=== PATIENT | male | born 1965 | race Caucasian/White ===

== ENCOUNTER 2019-02-09 07:25 | Emergency (ER) | payer BC ==
[2019-02-09 07:42] VITALS: BP 124/86
--- NOTE | 2019-02-09 08:10 | ED ---
Throat Pain/Nasal Congestion - HPI Summary HPI Summary: 53 yr old male with the complaint of pain followed by rash to the face and the scalp and ear. The patient states that 4 days ago he developed some pain, and pressure feeling in the right ear, the right side of the scalp and the right side of the face. The patient states that about a day and a half ago he then developed redness to the right side of the face with some small blisters forming. The rash is only in the V2, V3 distribution. No pain or rash to the right forehead, upper eyelid, eyeball or the nose. No facial weakness. - History of Current Complaint Chief Complaint: [place] Time Seen by Provider: 02/09/19 07:47 - Allergies/Home Medications Allergies/Adverse Reactions: Allergies Allergy/AdvReac Type Severity Reaction Status Date / Time No Known Allergies Allergy Verified 02/09/19 07:37 Home Medications: Home Medications diphenhydrAMINE HCl [Benadryl Allergy 25 MG CAP] 2 tab PO ONCE 02/09/19 [ History Confirmed 02/09/19] PMH/Surg Hx/FS Hx/Imm Hx - Surgical History Surgery Procedure, Year, and Place: L knee Infectious Disease History: No Infectious Disease History: Denies: Traveled Outside the [place] in Last 30 Days - Family History Known Family History: Positive: None - Social History Occupation: Employed Full-time Alcohol Use: Occasionally Substance Use Type: Reports: None Smoking Status (MU): Never Smoked Tobacco Review of Systems Constitutional: Negative Negative: Photophobia, Blurred Vision, Erythema Positive: Rash All Other Systems Reviewed And Are Negative: Yes Physical Exam Triage Information Reviewed: Yes Vital Signs On Initial Exam: Initial Vitals Temp Pulse Resp BP Pulse Ox 98.4 F 82 16 124/86 100 02/09/19 07:37 02/09/19 07:37 02/09/19 07:37 02/09/19 07:37 02/09/19 07:37 Vital Signs Reviewed: Yes Appearance: Positive: Well-Appearing, No Pain Distress Skin: Positive: Other - rash in the V2, V3 right side distribution, rash is red with vesicles. The forehead, upper eyelid, eyeball and the nose are spared. No rash in these areas. Head/Face: Positive: Normal Head/Face Inspection Eyes: Positive: EOMI, FAHAD, Conjunctiva Clear ENT: Positive: Normal ENT inspection, TM red - right anterior TM with red and some vesicles. Neck: Positive: Nontender Respiratory/Lung Sounds: Positive: Clear to Auscultation, Breath Sounds Present Cardiovascular: Positive: RRR. Negative: Murmur Abdomen Description: Positive: Nontender. Negative: Distended Musculoskeletal: Positive: Strength/ROM Intact Neurological: Positive: Sensory/Motor Intact, Alert, Oriented to Person Place, Time, CN Intact II-III, Normal Gait, Speech Normal Diagnostics - Vital Signs Vital Signs Temp Pulse Resp BP Pulse Ox 02/09/19 07:37 98.4 F 82 16 124/86 100 - Laboratory Lab Statement: Any lab studies that have been ordered have been reviewed, and results considered in the medical decision making process. EENT Course/Dx - Course Course Of Treatment: 53 yr old with shingles of the right V2,V3 branches of trigeminal nerve. I have reviewed the nerve charts with him and educated him on potential V1 involvement. I have prescribed Valtrex. i have referred him to Dr Murray the eye surgeon for follow up and the patient is aware of the possibility that this can spread to the V1 branch and cause a problem with his cornea. He will call the career development specialist this morning. - Diagnoses Provider Diagnoses: Shingles Discharge ED - Sign-Out/Discharge Documenting (check all that apply): Patient Departure All imaging exams completed and their final reports reviewed: No Studies - Discharge Plan Condition: Good Disposition: HOME Prescriptions: ValACYclovir (*) [Valtrex 1 GM(*)] 1 gm PO TID #21 tab Patient Education Materials: Shingles (ED) Referrals: Ann Parker MD [Primary Care Provider] - 2 Days Katina Murray MD [Medical Doctor] - 1 Day Additional Instructions: BE SURE TO GO TO THE ER and or call Dr MURRAY, the career development specialist if you develop pain, rash, burning on your forehead, upper eyelid, surface of the eye or the tip of the nose. DO not delay. Please call Dr Murray today to get an eye appointment for further evaluation and follow up. - Billing Disposition and Condition Condition: GOOD Disposition: Home
== END 2019-02-09 08:12 | disposition home or self-care (01) ==
LOC: UCCORT 07:25
DX: B02.9 Zoster without complications (principal)
CPT/HCPCS: 99202; G0463

== ENCOUNTER 2021-06-06 06:45 | Inpatient (IN) ==
[~2021-06-06 06:45] MED LIST: Buffered Lidocaine 1% SYRIN 1 ml INTRADERM ONE; DiMENhydriNATE IV 50 mg/ml 1 ml VIAL IV PUSH PRN; Lactated Ringers 1000 ml BAG 1,000 ML IV SCH; Naloxone 0.4 mg VIAL 0.4 mg/ml 1 ml VIAL IV PRN; Ondansetron 4 mg VIAL 2 MG/ML 2 ml VIAL IV PRN; diPHENhydraMINE IV 50 MG/ML 1 ml VIAL (BENADRYL) IV PRN
[2021-06-06] MEDS ORDERED: ceFAZolin 2 GM PREMIX 2 GM/50 ML BAG ONE (07:26)
[2021-06-06] MEDS ORDERED: Midazolam 2 mg/2 ml VIAL 1 mg/ml 2 ml VIAL (2 mg) ONE (07:36)
[2021-06-06] MEDS ORDERED: Lidocaine 2% PF 5 ML VIAL ONE ×2 (07:37→09:20)
[2021-06-06] MEDS ORDERED: Bupivacaine 0.5% SDV PF 30ML VIAL ONE (08:21)
[2021-06-06] MEDS ORDERED: Dexamethasone IV 4 MG/ML VIAL 1 ml VIAL ONE ×2 (08:22→09:20)
[2021-06-06] MEDS ORDERED: ROPIVACAINE 5 MG/ML 30 ML BTL (0.5%) ONE (09:01)
[2021-06-06] MEDS ORDERED: Propofol 10 MG/ML 20 ML BTL ONE (09:20)
[2021-06-06] MEDS ORDERED: fentaNYL 250 mcg/5 ml 50 MCG/ML 5 ml VIAL (250 MCG) ONE (09:20)
[2021-06-06] MEDS ORDERED: Ondansetron 4 mg VIAL 2 MG/ML 2 ml VIAL ONE (09:20)
[2021-06-06] MEDS ORDERED: Rocuronium 50 mg VIAL 10 mg/ml 5 ml VIAL (50 mg) ONE (09:20)
[2021-06-06] MEDS ORDERED: fentaNYL 100 mcg/2 ml 50 MCG/ML VIAL ONE ×3 (10:17→12:57)
[2021-06-06] MEDS ORDERED: HYDROmorphone 0.5 MG/0.5 ML SYRINGE ONE ×2 (10:18→10:31)
[2021-06-06] MEDS ORDERED: Lactulose 30 ml UDC PO PRN (12:18)
[2021-06-06] MEDS ORDERED: diPHENhydraMINE IV 50 MG/ML 1 ml VIAL (BENADRYL) IV PRN (12:18)
[2021-06-06] MEDS ORDERED: Ondansetron 4 mg VIAL 2 MG/ML 2 ml VIAL IV PRN (12:18)
[2021-06-06] MEDS ORDERED: Ondansetron ODT 4 mg TAB 4 MG TAB PO PRN (12:18)
[2021-06-06] MEDS ORDERED: Morphine 2 MG/ML SYRINGE IV PRN (12:18)
[2021-06-06] MEDS ORDERED: Magnesium Hydroxide LIQ 30 ML UDC PO PRN (12:18)
[2021-06-06] MEDS ORDERED: diPHENhydraMINE 25 mg TAB PO PRN (12:18)
[2021-06-06] MEDS: fentaNYL 100 mcg/2 ml 50 MCG/ML VIAL IV PRN ×4 (12:58→13:21)
[2021-06-06] MEDS ORDERED: HYDROmorphone 1 MG/1 ML SYRINGE ONE (13:53)
[2021-06-06] MEDS: Lactated Ringers 1000 ml BAG 1,000 ML IV SCH (15:13)
[2021-06-06] MEDS: ceFAZolin VIAL 1 GM in NS 0.9% 50 ML 50 ML IVPB SCH (17:03)
[2021-06-06] MEDS: Magnesium Hydroxide LIQ 30 ML UDC PO SCH (21:17)
[2021-06-07] MEDS: Lactated Ringers 1000 ml BAG 1,000 ML IV SCH (01:24)
[2021-06-07] MEDS: ceFAZolin VIAL 1 GM in NS 0.9% 50 ML 50 ML IVPB SCH ×2 (01:54→09:19)
[2021-06-07 06:05] LABS: Hematocrit 33 % (42-52); Hemoglobin 11.7 g/dL (14.0-18.0); Mean Platelet Volume 6.6 fL (7.4-10.4); Platelet Count 226 10^3/uL (150-450)
[2021-06-07 06:39] LABS: Calcium 8.6 mg/dL (8.6-10.3); Potassium 4.7 mmol/L (3.5-5.0); eGFR CKD-EPI 96.4 (>60)
[2021-06-07] MEDS ORDERED: Vitamin THERAPEUTIC TAB PO SCH (09:00)
[2021-06-07] MEDS: Magnesium Hydroxide LIQ 30 ML UDC PO SCH (09:49)
[2021-06-07 10:59] VITALS: BP 119/73
== END 2021-06-07 14:00 | disposition home or self-care (01) | DRG 302 ==
LOC: AA 06:45 → SSU 12:18
PROVIDERS: ADMIT Orthopaedic Surgery Adult Reconstructive Orthopaedic Surgery; ATTEND Orthopaedic Surgery Adult Reconstructive Orthopaedic Surgery